=== PATIENT | male | born 1955 | race Caucasian/White ===

== ENCOUNTER 2024-12-05 15:41 | Emergency (ER) | payer MEDICARE, MEDICAID, SELFPAY ==
[2024-12-05 15:42] VITALS: BMI 26.6
[2024-12-05 15:51] VITALS: BP 164/101; BP 174/106; PULSE 77; RESP 20; TEMP 36.9; O2SAT 96
--- NOTE | 2024-12-05 16:12 | XR_ITS ---
Examination: CT abdomen and pelvis without contrast. Coronal 3-D reconstructions. Sagittal 2-D reconstructions. Date and time of exam:December 05, 2024 1614 hours INDICATIONS: Onset left-sided flank pain today CTDI: vol (mGy): 6.76 DLP: (mGycm): 381 Technique: Axial images of the abdomen have been obtained, 3 mm slice thickness Intravenous contrast material has not been administered. Low dose protocols were performed. One or more of the following dose reduction techniques were used; automated exposure control, adjustment of the mA and/or KV according to patient size, use of iterative reconstruction technique. Findings: Mild enlargement cardiac contour No focal liver or splenic lesions No gallstones No pancreatic or adrenal mass No renal or ureteral calculi, no hydronephrosis Aorta normal size No pericecal inflammatory change No bowel obstruction No diverticulitis Prostatomegaly transverse dimension 5.5 cm No bladder mass or bladder calculi Moderate osteopenia IMPRESSION: No renal or ureteral calculi, no hydronephrosis Moderate prostatomegaly No bladder mass or bladder calculi
--- NOTE | 2024-12-05 16:12 | PD.EDRME ---
Rapid Medical Screening Exam RME Arrival date/time: 12/05/24 15:41 69-year-old male presents emergency dept today complains of left-sided back and flank pain Chief Complaint: Abdominal Pain Vital signs: Vital Signs Temperature 98.4 F 12/05/24 15:51 Pulse Rate 77 12/05/24 15:51 Respiratory Rate 20 12/05/24 15:51 Blood Pressure 164/101 H 12/05/24 15:51 Pulse Oximetry (%) 96 12/05/24 15:51 Oxygen Delivery Method Room Air 12/05/24 15:51
[2024-12-05] MEDS: KETOROLAC INJ 30 MG/ML VIAL IM (16:32)
[2024-12-05 16:39] LABS: Basophils % (Auto) 0 % (0-2.5); Eosinophils # (Auto) 0.1 Thou/mm3 (0.0-0.5); Eosinophils % (Auto) 1 % (0-10); Hematocrit 42.9 % (41.0-53.0); Hemoglobin 14.8 g/dL (13.5-16.0); Immature Granulocytes % (Auto) 0 % (0-0); Immature Granulocytes Auto 0.03 Thou/mm3 (0.00-0.00); Lymphocytes # (Auto) 1.2 Thou/mm3 (1.0-4.8); Lymphocytes % (Auto) 15 % (10-50); Mean Corpuscular HGB Conc 34.5 g/dl (31.0-37.0); Mean Corpuscular Hemoglobin 28.5 pg (25.0-35.0); Mean Corpuscular Volume 83 fL (80-100); Monocytes # (Auto) 0.5 Thou/mm3 (0.0-0.8); Monocytes % (Auto) 7 % (0-12); Neutrophils # (Auto) 6.3 Thou/mm3 (1.8-7.7); Neutrophils % (Auto) 78 % (37-80); Nucleated Red Blood Cell % 0 /100 WBC (0); Platelet Count 166 Thou/mm3 (140-440); RDW Standard Deviation 39.9 fL (35.1-43.9); Red Blood Count 5.19 Miln/mm3 (4.50-5.90); White Blood Count 8.1 Thou/mm3 (3.8-10.6)
[2024-12-05 16:55] LABS: Alanine Aminotransferase 27 U/L (10-49); Albumin, Serum 4.5 gm/dL (3.4-4.8); Albumin/Globulin Ratio 1.8 (1.2-2.2); Alkaline Phosphatase 71 U/L (46-116); Anion Gap 8 (7-16); Aspartate Amino Transferase 28 U/L (0-34); BUN/Creatinine Ratio 17 Ratio (12-20); Bilirubin,Total 0.6 mg/dL (0.3-1.2); Blood Urea Nitrogen 17 mg/dL (9-23); Calcium 9.2 mg/dL (8.3-10.6); Calcium (Corrected) 9.2 mg/dL (8.5-10.1); Carbon Dioxide 25.9 mMol/L (20.0-31.0); Chloride 107 mMol/L (98-107); Globulin 2.5 gm/dL (2.3-3.5); Glucose 110 mg/dL (74-106); Lipase 41 U/L (12-53); Osmolality,Calculated 283 (275-295); Potassium 4.2 mMol/L (3.4-5.1); Sodium 141 mMol/L (136-145); eGFR > 60 See Note
[2024-12-05 16:56] LABS: Collection Type, Urine Clean Catch; Squamous Epithelial Cell,Urine 0 /hpf (0-5)
[2024-12-05 17:16] LABS: Bilirubin,Urine Negative (Negative); Blood,Urine Negative (Negative); Clarity,Urine Clear (Clear/Hazy); Color,Urine Lt-Yellow (Lt Yel-Yel); Culture Indicated,Urine Not Indicated; Glucose, Urine Negative (Negative); Ketones,Urine Negative (Negative); Leukocyte Esterase,Urine Negative (Negative); Nitrite,Urine Negative (Negative); PH,Urine 6.5 (5.0-7.0); Protein,Urine Trace (Neg - Trace); RBC,Urine 3 /hpf (0-3); Specific Gravity,Urine 1.023 (1.001-1.035); Urobilinogen,Urine Negative mg/dL (0.0-1.0); WBC,Urine 1 /hpf (0-5)
--- NOTE | 2024-12-05 20:34 | PD.EDABDPN ---
ED Abdominal Pain RME/HPI General Chief Complaint: Abdominal Pain Stated complaint: LEFT KIDNEY PAIN SINCE THIS AM WITH NAUSEA/VOMITIN Time seen by provider: 12/05/24 20:14 Arrival date/time: 12/05/24 15:41 69 year old male present to emergency room with c/o left flank pain this morning. LOCATION: flank SEVERITY: Symptoms are described as being severe with limitations on activities of daily living QUALITY: Symptoms are described as being cramping CONTEXT: The patient is unable to identify any inciting events. DURATION/TIMING: The symptoms started approximately one day ago and have been waxing/waning but always present without ever completely resolving. ASSOCIATED SYMPTOMS: nausea and vomiting MODIFYING FACTORS: The patient is unable to identify any alleviating or aggravating symptoms. PERTINENT ROS: no fevers, no anorexia, no nausea or vomiting, no diarrhea, no ripping or tearing sensations, no syncope or presyncopal symptoms, denies trauma, denies genital pain REVIEW OF SYSTEMS: See History of Present Illness - with the exception of those mentioned in the history of present illness, all other systems reviewed and reported as negative GENERAL: In general the patient is awake, interactive, in an emergency department gurney. HEAD/EYES/EARS/NOSE/THROAT: normo-cephalic, atraumatic, mucus membranes are moist, anicteric, palpebral conjunctiva is pink, trachea is midline. CARDIOVASCULAR: regular rate and regular rhythm, no murmurs, heart sounds are not distant, strong pulses in all four extremities that are equal and symmetric bilateral upper and lower extremities, normal capillary refill. CHEST/PULMONARY: normal chest rise and fall, good air movement, clear to auscultation bilaterally, normal inspiratory to expiratory ratios without evidence of respiratory distress. NECK: No midline/Paraspinal tenderness, no step off ROM/Strenght intact No Kernig and bruzinski sign. No trauma ABDOMEN: soft, not tender, no masses appreciated BACK: normal range of motion without pain. NEUROLOGICAL: cranio-facial features are symmetric, moves all four extremities equally without obvious limitations or weakness. EXTREMITY: no tenderness to palpation over the long bones or large joints of the bilateral upper and lower extremities, no joint swelling, no joint erythema, no signs of trauma, no unilateral leg swelling and no peripheral edema. SKIN: warm, dry, well-perfused, no jaundice, no rash, no telangiectasias or petechia. PSYCH: calm, cooperative, no evidence of psychosis or agitation RME / HPI RME / HPI narrative: 12/05/24 15:41 69-year-old male presents emergency dept today complains of left-sided back and flank pain Related Data Home Medications ?Medication ?Instructions ?Recorded ?Confirmed hydroxyzine HCl 25 mg tablet 25 mg PO DAILY 09/02/22 09/02/22 lisinopril 20 mg tablet 20 mg PO DAILY 09/02/22 09/02/22 metformin 500 mg tablet 500 mg PO BID 09/02/22 09/02/22 Allergies Allergy/AdvReac Type Severity Reaction Status Date / Time No Known Allergies Allergy Verified 12/05/24 15:44 Course Quality Measures none Orders Category Date Time Status CT abdomen pelvis wo con Stat Exams 12/05/24 16:12 Completed CBC Stat Lab 12/05/24 16:24 Completed Comprehensive Metabolic Panel Stat Lab 12/05/24 16:24 Completed Lipase Stat Lab 12/05/24 16:24 Completed UA, C/S IF [Urinalysis, C/S if Indicated] Stat Lab 12/05/24 16:45 Completed Ketorolac Inj [Toradol Inj] Med 12/05/24 16:12 Discontinued 30 mg IM X1 ONE Reevaluation(s) Reevaluation #1: pt report feeling better Vital Signs Vital signs: Vital Signs Temperature 98.4 F 12/05/24 15:51 Pulse Rate 77 12/05/24 15:51 Respiratory Rate 20 12/05/24 15:51 Blood Pressure 164/101 H 12/05/24 15:51 Pulse Oximetry (%) 96 12/05/24 15:51 Oxygen Delivery Method Room Air 12/05/24 15:51 Abdominal Pain MDM Patient data External records reviewed:: [facility] previous records Clinical information provided by:: patient Social determinants that could affect healthcare access:: none Patient has the following chronic illnesses:: HTN, DM How is presenting disease/condition affected by chronic disease/condition?: uneffected by Evaluation data The following diagnostics were reviewed and interpreted by me:: lab results and radiology exam(s) Lab and/or radiology exams considered but not ordered:: n/a Interpretation Summary: CT:?Mild enlargement cardiac contour No focal liver or splenic lesions No gallstones No pancreatic or adrenal mass No renal or ureteral calculi, no hydronephrosis Aorta normal size No pericecal inflammatory change No bowel obstruction No diverticulitis Prostatomegaly transverse dimension 5.5 cm No bladder mass or bladder calculi Moderate osteopenia IMPRESSION: No renal or ureteral calculi, no hydronephrosis Moderate prostatomegaly No bladder mass or bladder calculi cbc/cmp/urine no acute findings Medications / Prescriptions Medications or Prescriptions considered but not ordered:: n/a Medication administrations:: Medication Administration History Discontinued Medications Ketorolac Tromethamine (Ketorolac Inj 30 Mg/Ml Vial) 30 mg IM X1 ONE Stop: 12/05/24 16:13 Last Admin: 12/05/24 16:32 Dose: 30 mg Documented By: KF as stated above Consultations Consultation(s) initiated? (list below): No Diagnosis Differential diagnosis abdominal pain: abdominal pain, acute appendicitis, calculus of kidney, constipation, diverticulitis, gastroenteritis and small bowel obstruction Most likely diagnosis given after review of the tests above:: abd pain Admission Indicated Admission indicated?: not indicated Admission Request Was there a request for admission?: No Disposition Plan Disposition Plan: Discharge Discharge Attestation Discharge Attestation: The patient and all family members were given an opportunity to ask questions and understood the discharge instructions. Discharge instructions specifically effects, indications for sooner follow up or return to the emergency department, and the expected course of current diagnosis. Patient condition: Stable Discharge Plan Plan Patient Disposition: HOME (Self Care) Health Concerns: Follow with PMD as directed Take tylenol or motrin as need Return to ED if sx worsen Prescriptions/Referrals Prescriptions/Med Rec: No Action metformin 500 mg tablet 500 mg PO BID lisinopril 20 mg tablet 20 mg PO DAILY hydroxyzine HCl 25 mg tablet 25 mg PO DAILY Referrals: Ulises Beltran MD [Primary Care Provider] - In 1 week Problem List Clinical Impression: Abdominal pain Patient/Caregiver Discharge Instructions Education Materials: Abdominal Pain Print Language: Emirati Stand Alone Forms: [employer] Award Info., Patient Portal Info Letter
== END 2024-12-05 20:56 | disposition home or self-care (01) ==
PROVIDERS: Nurse Practitioner Primary Care; Emergency Provider Emergency Medicine; PCP Family Medicine
DX: R10.9 Unspecified abdominal pain (principal); N40.0 Benign prostatic hyperplasia without lower urinary tract symptoms
CPT/HCPCS: 36415; 74176; 80053; 81001; 83690; 85025; 96372; 99284; J1885

== ENCOUNTER 2024-12-06 10:12 | Emergency (ER) | payer MEDICARE, MEDICAID, SELFPAY ==
[2024-12-06 10:14] VITALS: BMI 26.6
[2024-12-06 10:55] VITALS: BP 167/96; PULSE 78; RESP 16; TEMP 36.9; O2SAT 99
--- NOTE | 2024-12-06 11:12 | PD.EDRME ---
Rapid Medical Screening Exam E Arrival date/time: 12/06/24 10:12 69-year-old male with a history of hypertension and type 2 diabetes presents to the emergency room with a chief complaint of left-sided flank pain that radiates down to his left groin. Patient was seen here for the same reason yesterday but states his pain has not gone away. I have greeted and performed a focused initial assessment of this patient. A comprehensive ED assessment and evaluation of the patient, analysis of all test results, and completion of the medical decision making process will be conducted by additional ED providers. Chief Complaint: Abdominal Pain Time Seen by Provider: 12/06/24 10:32 Vital signs: Vital Signs Temperature 98.5 F 12/06/24 10:55 Pulse Rate 78 12/06/24 10:55 Respiratory Rate 16 12/06/24 10:55 Blood Pressure 167/96 H 12/06/24 10:55 Pulse Oximetry (%) 99 12/06/24 10:55 Oxygen Delivery Method Room Air 12/06/24 10:55 Vital signs reviewed by provider: Yes
--- NOTE | 2024-12-06 11:14 | PD.EDADULT ---
ED General RME/HPI General Chief complaint: Abdominal Pain Stated complaint: L) KIDNEY PAIN RADIATING TO ABD Time Seen by Provider: 12/06/24 10:32 Arrival date/time: 12/06/24 10:12 RME / HPI RME / HPI narrative: 12/06/24 10:12 69-year-old male with a history of hypertension and type 2 diabetes presents to the emergency room with a chief complaint of left-sided flank pain that radiates down to his left groin. Patient was seen here for the same reason yesterday but states his pain has not gone away. I have greeted and performed a focused initial assessment of this patient. A comprehensive ED assessment and evaluation of the patient, analysis of all test results, and completion of the medical decision making process will be conducted by additional ED providers. DR. NOVAK MAIN ED EVALUATION 69 y/o male with H/o DM Type II and hypertension to ED c/o tense left-sided flank pain that radiates to the left upper quadrant of the abdomen x 2 days. 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 Pain is alleviated when walking and holding up his left leg, but worsens when face down or when sitting up. Patient also denies any fever, body aches, sore throat, dysuria, hematuria, or testicular pain. Related Data Home Medications ?Medication ?Instructions ?Recorded ?Confirmed hydroxyzine HCl 25 mg tablet 25 mg PO DAILY 09/02/22 09/02/22 lisinopril 20 mg tablet 20 mg PO DAILY 09/02/22 09/02/22 metformin 500 mg tablet 500 mg PO BID 09/02/22 09/02/22 Allergies Allergy/AdvReac Type Severity Reaction Status Date / Time No Known Allergies Allergy Verified 12/06/24 10:19 Review of Systems Review of Systems Systems Reviewed: All systems reviewed, normal except as documented Narrative Review of Systems: Constitutional: DENIES; Fevers Eyes: DENIES; Loss of vision Head/Ear/Nose: DENIES; Loss of hearing Throat: DENIES; Dysphagia, sore throat Cardiovascular: DENIES; Chest pain, dyspnea or syncope Respiratory: DENIES; Shortness of breath Gastrointestinal: DENIES; Rectal bleeding or melena. Genitourinary: DENIES; Dysuria (painful or difficult urination) Musculoskeletal: DENIES; Arthralgia (pain in a joint), myalgia, + left-sided flank pain Skin: DENIES; Rash Neurological: DENIES; Loss of function or movement Psychiatric: DENIES; recent major life stressor, emotional problem, illicit drug use or abuse Endocrinology: DENIES; Weight change Hematologic/Lymphatic: DENIES; Abnormal bruising Allergic/Immunologic: DENIES; Urticaria (hives)? Past Medical History Past Medical History CARDIAC: Positive Cardiac Disorders and Hypertension ENDOCRINE: Positive Endocrine Disorders OTHER HISTORY: Positive Cancer (LIP CA 10 YRS AGO) Family History FAMILY HISTORY: Positive Family Cancer (SISTER COLON CA) Social History SMOKING STATUS: Never smoker ED Exam Narrative Physical exam: I was asked to see this patient in the [facility] area due to persistent left-sided or left flank pain. Physical Exam: General: The vital signs were reviewed. Patient is a well-developed pleasant gentleman the patient is non-toxic, in no apparent distress and appears healthy with a patent airway, no respiratory distress and has no apparent circulatory problems. Head & Scalp: Normocephalic, atraumatic. Face: Appears normal and is without lesions, deformity. Ears: Left external pinna appears normal. Right external pinna appears normal. Eyes: The sclera is anicteric. No obvious photophobia. The Left and Right Orbit/Lid/Conjunctiva appears normal without swelling, discoloration or injection. Nose: The nose is without deformity, discharge or tenderness; Throat: Appears normal. The mucous membranes are pink and moist without exudates, redness or mass seen. The tongue appears normal. Neck: The neck is supple and no apparent mass or adenopathy. Chest: The chest wall is normal in size and symmetry and has no chest wall tenderness or crepitus. The patient displays normal ventilator effort without retractions, accessory muscle use and has adequate air movement bilaterally with no wheezes and no rales. Cardiovascular: Regular rate and rhythm; No murmurs, rubs, or gallops; Gastrointestinal: The abdomen appears normal. No obvious hernias or mass. The abdomen is soft and benign, non-distended, with no pain, no guarding and no rebound tenderness. Bowel sounds are present and normal sounding. No CVA tenderness. Genitourinary: Back/Spine: There is no evidence of any vesicular rash seen. Very tender over the left flank and specifically when you palpate the lowest rib on the left. Patient gets up and walks without any difficulty. Does not appear to have any muscular tenderness below the rib and there is no spinal tenderness. Extremities/Musculoskeletal/lymphatic: The bilateral upper and lower extremities are warm. There is no evidence of arterial insufficiency. There is no evidence of venous insufficiency/edema. The patient spontaneously moves bilateral upper and lower extremities with no pain and no limitation of movement. There is no apparent, injury or trauma. Skin: The skin is warm, dry and intact. No rashes. No petechia. No purpura. No abnormal bruising. The color is appropriate with no cyanosis. Mental status/Psychiatric: Mental status is appropriate for age. The patient has no apparent delusions, visual hallucinations, no apparent audible hallucinations. The patient has no apparent suicidal thoughts/ideation and no apparent homicidal thoughts/ideation. Neurological: The patient is awake, alert, interactive, cordial, cooperative and is oriented to name and situation. The patient follows commands and answers historical question with no impairment. There is no visual disturbance apparent. The pupils are equal and reactive bilaterally with normal eye movements and no diplopia The bilateral upper and lower extremities have normal strength, normal range of motion and normal functioning. The gait, station and balance appear to be baseline with no acute change Course Quality Measures none Orders Category Date Time Status Bedside COVID-19 Antigen Test NOW Care 12/06/24 11:23 Completed Bedside Influenza A&B Antigen Test NOW Care 12/06/24 11:[address] lumbar spine wo con Stat Exams 12/06/24 11:[address] thoracic spine wo con Stat Exams 12/06/24 11:24 Completed RSV [Respiratory Syncytial Virus Ag] Stat Lab 12/06/24 12:40 Completed HYDROcodone*/APAP 5/325 [Jerome 5/325] Med 12/06/24 12:05 Discontinued 1 tab PO X1 ONE Ibuprofen Tab [Motrin Tab] Med 12/06/24 12:05 Discontinued 400 mg PO X1 ONE Vital Signs Vital signs: Vital Signs Temperature 98.5 F 12/06/24 10:55 Pulse Rate 78 12/06/24 10:55 Respiratory Rate 16 12/06/24 10:55 Blood Pressure 167/96 H 12/06/24 10:55 Pulse Oximetry (%) 99 12/06/24 10:55 Oxygen Delivery Method Room Air 12/06/24 10:55 [facility] Patient data External records reviewed:: [facility] previous records (I reviewed most recent ED visit for abdominal pain on 12/05/2024.) Clinical information provided by:: patient Social determinants that could affect healthcare access:: none Patient has the following chronic illnesses:: Hypertension, Type II DM How is presenting disease/condition affected by chronic disease/condition?: exacerbated by Evaluation data The following diagnostics were reviewed and interpreted by me:: lab results and radiology exam(s) Lab and/or radiology exams considered but not ordered:: None Interpretation Summary: Patient: MALLORY MADDEN. Record#: [id number] Birthdate: 1955 Age/Sex: 69 / M Location: [facility] Attending Dr: Ordering Physician: Josr Novak MD Date of Service: 12/06/24 Procedure(s): CT thoracic spine wo con Accession Number(s): [id number] cc: Josr Novak MD; Gavin Worthington MD; NO PRIMARY/FAMILY,PHYSICIAN~ Examination: CT thoracic spine, without contrast. 2-D sagittal reconstructions. 2-D coronal reconstructions. 3-D reconstructions. Date and time of exam:December 06, 2024 1224 hours INDICATIONS: Upper back pain today radiating to the flank region CTDI: vol (mGy):22.2 DLP: (mGycm):834 Technique: Multiple 1.25 mm axial sections of the thoracic spine without intravenous contrast have been obtained. 2-D sagittal and coronal reconstructions have been obtained. 3-D reconstructions have been obtained. Low dose protocols were performed. One or more of the following dose reduction techniques were used; automated exposure control, adjustment of the mA and/or KV according to patient size, use of iterative reconstruction technique. Findings: Moderate osteopenia. Satisfactory alignment thoracic vertebral bodies. Mild diffuse thoracic disc narrowing. Thoracic pedicles laminated transverse and posterior spinous processes intact Soft tissue settings demonstrate no focal thoracic disc protrusion IMPRESSION: Mild diffuse thoracic degenerative disc disease No significant acquired spinal stenosis Dictated By: Gavin Worthington MD Signed By: <Electronically signed by Gavin Worthington MD in OV> 12/06/24 1337 Patient: MALLORY MADDEN Med. Record#: [id number] Birthdate: 1955 Age/Sex: 69 / M Location: [facility] Attending Dr: Ordering Physician: Josr Novak MD Date of Service: 12/06/24 Procedure(s): CT lumbar spine wo con Accession Number(s): [id number] cc: Josr Novak MD; Gavin Worthington MD; NO PRIMARY/FAMILY,PHYSICIAN~ Examination: CT lumbar spine, without contrast. 2-D sagittal reconstructions. 2-D coronal reconstructions. 3-D reconstructions. Date and time of exam:December 06, 2024 1224 hours INDICATIONS: Low back pain beginning today CTDI: vol (mGy):19.8 DLP: (mGycm):616 Technique: Multiple 1.25 mm axial sections of the lumbar spine without intravenous contrast have been obtained. 2-D sagittal and coronal reconstructions have been obtained. 3-D reconstructions have been obtained. Low dose protocols were performed. One or more of the following dose reduction techniques were used; automated exposure control, adjustment of the mA and/or KV according to patient size, use of iterative reconstruction technique. Findings: Adequate alignment lumbar vertebral bodies on the lateral view Mild to moderate lumbar disc narrowing L1-L2, L2-L3 No lumbar vertebral body compression fracture Lumbar pedicles, laminae, transverse and posterior spinous processes intact L5-S1 3 mm central lumbar disc bulge L4-L5 3 mm central lumbar disc bulges L3-L4 no disc protrusion L2-L3 no disc protrusion L1-L2 no disc protrusion IMPRESSION: No lumbar fracture L5-S1, L4-L5 3 mm central lumbar disc bulges Dictated By: Gavin Worthington MD Signed By: <Electronically signed by Gavin Worthington MD in OV> 12/06/24 1336 Medications Medications considered but not ordered:: None Medication administrations:: Medication Administration History Discontinued Medications Hydrocodone Bitart/Acetaminophen (Hydrocodone/Apap 5/325 Tablet) 1 tab PO X1 ONE Stop: 12/06/24 12:06 Last Admin: 12/06/24 12:23 Dose: 1 tab Documented By: DB Ibuprofen (Ibuprofen Tab 400 Mg Tablet) 400 mg PO X1 ONE Stop: 12/06/24 12:06 Last Admin: 12/06/24 12:23 Dose: 400 mg Documented By: DB See above if any. Consultations Consultation(s) initiated? (list below): No Diagnosis Differential Diagnosis ED Complaint MDM: Flank pain, musculoskeletal pain, kidney stone Most likely diagnosis given after review of the tests above:: Acute left flank pain Influenza A Admission Indicated Admission indicated?: not indicated Explain why admission is indicated or not indicated:: Does not meet admission criteria Admission Request Was there a request for admission?: No Disposition Plan Disposition Plan: Discharge Discharge Attestation Discharge Attestation: The patient and all family members were given an opportunity to ask questions and understood the discharge instructions. Discharge instructions specifically effects, indications for sooner follow up or return to the emergency department, and the expected course of current diagnosis. Patient condition: Stable Medical Decision Making MDM Narrative MDM Narrative: ICristina, am scribing for and in the presence of Dr. Josr Novak. I was asked by Desmond the nurse practitioner to come see this patient as he returns for reevaluation of his left flank pain. Yesterday had an extensive workup which reveals a CBC CHEM panels which were negative urine which was negative CT scan which was also negative no kidney stone was seen. Patient reports that his pain is still this there is unchanged from yesterday. Does not recall any injury or trauma. 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 Clinical exam he seems to have a palpable component to pain overlying the left lowest rib in the flank area. There is no rash to suggest shingles at this time. He appears to move okay but does have worsening pain when he does left lateral bending. Patient also has some pain in his left leg suggesting the possibility of possible radicular etiology. After reviewing the charts where he had labs and CT scan yesterday negative for kidney stone and labs are within normal limit , we decided to CT his thorax and lumbar area rule out any CT scans of the thorax came back negative CT scan of the lumbar spine was also negative set for some lower lumbar bulging disks which are not in the region of the patient's pain. Curiously enough influenza A came back positive. Patient is alert awake on reevaluation O2 sat is good. He was advised use Tylenol drink a lot of fluids and come back if getting worse. Curious thing about this patient he presents with more localized pain but then he is complaining about other parts of his body which is consistent with the flu and no obvious significant pathology was found to explain his left flank pain other than sometimes feels influenza do have back pain that is localized for unclear reasons. Differential Diagnosis Differential Diagnosis: Flank pain, musculoskeletal pain, kidney stone Lab Data Labs: Lab Results 12/06/24 Range/Units 12:40 RSV Rapid Negative (Negative) Discharge Plan Plan Patient Disposition: HOME (Self Care) Prescriptions/Referrals Prescriptions/Med Rec: No Action metformin 500 mg tablet 500 mg PO BID lisinopril 20 mg tablet 20 mg PO DAILY hydroxyzine HCl 25 mg tablet 25 mg PO DAILY Referrals: No Primary/Family,Physician [Primary Care Provider] - In 1 week Problem List Clinical Impression: Acute left flank pain, Influenza A Patient/Caregiver Discharge Instructions Education Materials: ED Influenza (Adult) Additional Instructions: It appears your flank pain and bodyaches are secondary to the influenza. CAT scans of your back were negative today. As discussed drink plenty fluids and you can take Tylenol or ibuprofen with some food to help with your aches and pains. Come back if getting short of breath or worse anyway. Print Language: Danish Stand Alone Forms: [facility] Award Info., Patient Portal Info Letter
--- NOTE | 2024-12-06 11:24 | XR_ITS ---
Examination: CT lumbar spine, without contrast. 2-D sagittal reconstructions. 2-D coronal reconstructions. 3-D reconstructions. Date and time of exam:December 06, 2024 1224 hours INDICATIONS: Low back pain beginning today CTDI: vol (mGy):19.8 DLP: (mGycm):616 Technique: Multiple 1.25 mm axial sections of the lumbar spine without intravenous contrast have been obtained. 2-D sagittal and coronal reconstructions have been obtained. 3-D reconstructions have been obtained. Low dose protocols were performed. One or more of the following dose reduction techniques were used; automated exposure control, adjustment of the mA and/or KV according to patient size, use of iterative reconstruction technique. Findings: Adequate alignment lumbar vertebral bodies on the lateral view Mild to moderate lumbar disc narrowing L1-L2, L2-L3 No lumbar vertebral body compression fracture Lumbar pedicles, laminae, transverse and posterior spinous processes intact L5-S1 3 mm central lumbar disc bulge L4-L5 3 mm central lumbar disc bulges L3-L4 no disc protrusion L2-L3 no disc protrusion L1-L2 no disc protrusion IMPRESSION: No lumbar fracture L5-S1, L4-L5 3 mm central lumbar disc bulges
--- NOTE | 2024-12-06 11:24 | XR_ITS ---
Examination: CT thoracic spine, without contrast. 2-D sagittal reconstructions. 2-D coronal reconstructions. 3-D reconstructions. Date and time of exam:December 06, 2024 1224 hours INDICATIONS: Upper back pain today radiating to the flank region CTDI: vol (mGy):22.2 DLP: (mGycm):834 Technique: Multiple 1.25 mm axial sections of the thoracic spine without intravenous contrast have been obtained. 2-D sagittal and coronal reconstructions have been obtained. 3-D reconstructions have been obtained. Low dose protocols were performed. One or more of the following dose reduction techniques were used; automated exposure control, adjustment of the mA and/or KV according to patient size, use of iterative reconstruction technique. Findings: Moderate osteopenia. Satisfactory alignment thoracic vertebral bodies. Mild diffuse thoracic disc narrowing. Thoracic pedicles laminated transverse and posterior spinous processes intact Soft tissue settings demonstrate no focal thoracic disc protrusion IMPRESSION: Mild diffuse thoracic degenerative disc disease No significant acquired spinal stenosis
--- NOTE | 2024-12-06 11:25 | PD.EDADULT ---
ED General RME/HPI General Chief complaint: Abdominal Pain Stated complaint: L) KIDNEY PAIN RADIATING TO ABD Time Seen by Provider: 12/06/24 10:32 Arrival date/time: 12/06/24 10:12 RME / HPI RME / HPI narrative: 12/06/24 10:12 69-year-old male with a history of hypertension and type 2 diabetes presents to the emergency room with a chief complaint of left-sided flank pain that radiates down to his left groin. Patient was seen here for the same reason yesterday but states his pain has not gone away. I have greeted and performed a focused initial assessment of this patient. A comprehensive ED assessment and evaluation of the patient, analysis of all test results, and completion of the medical decision making process will be conducted by additional ED providers. DR. RADER MAIN ED EVALUATION 69 y/o male with H/o DM Type II and hypertension to ED c/o tense left-sided flank pain that radiates to the left upper quadrant of the abdomen x 2 days. 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 Pain is alleviated when walking and holding up his left leg, but worsens when face down or when sitting up. Patient also denies any fever, body aches, sore throat, dysuria, hematuria, or testicular pain. Related Data Home Medications ?Medication ?Instructions ?Recorded ?Confirmed hydroxyzine HCl 25 mg tablet 25 mg PO DAILY 09/02/22 09/02/22 lisinopril 20 mg tablet 20 mg PO DAILY 09/02/22 09/02/22 metformin 500 mg tablet 500 mg PO BID 09/02/22 09/02/22 Allergies Allergy/AdvReac Type Severity Reaction Status Date / Time No Known Allergies Allergy Verified 12/06/24 10:19 Review of Systems Review of Systems Systems Reviewed: All systems reviewed, normal except as documented Narrative Review of Systems: Constitutional: DENIES; Fevers Eyes: DENIES; Loss of vision Head/Ear/Nose: DENIES; Loss of hearing Throat: DENIES; Dysphagia, sore throat Cardiovascular: DENIES; Chest pain, dyspnea or syncope Respiratory: DENIES; Shortness of breath Gastrointestinal: DENIES; Rectal bleeding or melena. Genitourinary: DENIES; Dysuria (painful or difficult urination), hematuria, testicular pain Musculoskeletal: DENIES; Arthralgia (pain in a joint), + left-sided flank pain, myalgia Skin: DENIES; Rash Neurological: DENIES; Loss of function or movement Psychiatric: DENIES; recent major life stressor, emotional problem, illicit drug use or abuse Endocrinology: DENIES; Weight change Hematologic/Lymphatic: DENIES; Abnormal bruising Allergic/Immunologic: DENIES; Urticaria (hives)? Past Medical History Past Medical History CARDIAC: Positive Cardiac Disorders and Hypertension ENDOCRINE: Positive Endocrine Disorders OTHER HISTORY: Positive Cancer (LIP CA 10 YRS AGO) Family History FAMILY HISTORY: Positive Family Cancer (SISTER COLON CA) Social History SMOKING STATUS: Former smoker Course Orders Category Date Time Status Bedside COVID-19 Antigen Test NOW Care 12/06/24 11:23 Active Bedside Influenza A&B Antigen Test NOW Care 12/06/24 11:[address] lumbar spine wo con Stat Exams 12/06/24 11:[address] thoracic spine wo con Stat Exams 12/06/24 11:24 Ordered RSV [Respiratory Syncytial Virus Ag] Stat Lab 12/06/24 11:23 Ordered Vital Signs Vital signs: Vital Signs Temperature 98.5 F 12/06/24 10:55 Pulse Rate 78 12/06/24 10:55 Respiratory Rate 16 12/06/24 10:55 Blood Pressure 167/96 H 12/06/24 10:55 Pulse Oximetry (%) 99 12/06/24 10:55 Oxygen Delivery Method Room Air 12/06/24 10:55 [facility] Patient data External records reviewed:: [facility] previous records (I reviewed most recent ED visit for abdominal pain on 12/05/2024.) Social determinants that could affect healthcare access:: none Patient has the following chronic illnesses:: DM Type II, Hypertension Evaluation data The following diagnostics were reviewed and interpreted by me:: lab results and radiology exam(s) Lab and/or radiology exams considered but not ordered:: None Medications Medications considered but not ordered:: None Medication administrations:: See above if any. Discharge Plan Prescriptions/Referrals Prescriptions/Med Rec: No Action metformin 500 mg tablet 500 mg PO BID lisinopril 20 mg tablet 20 mg PO DAILY hydroxyzine HCl 25 mg tablet 25 mg PO DAILY Referrals: No Primary/Family,Physician [Primary Care Provider] - In 1 week Patient/Caregiver Discharge Instructions Print Language: Estonian
--- NOTE | 2024-12-06 11:50 | PD.EDADULT ---
ED General RME/HPI General Chief complaint: Abdominal Pain Stated complaint: L) KIDNEY PAIN RADIATING TO ABD Time Seen by Provider: 12/06/24 10:32 Arrival date/time: 12/06/24 10:12 RME / HPI RME / HPI narrative: 12/06/24 10:12 69-year-old male with a history of hypertension and type 2 diabetes presents to the emergency room with a chief complaint of left-sided flank pain that radiates down to his left groin. Patient was seen here for the same reason yesterday but states his pain has not gone away. I have greeted and performed a focused initial assessment of this patient. A comprehensive ED assessment and evaluation of the patient, analysis of all test results, and completion of the medical decision making process will be conducted by additional ED providers. DR. RADER MAIN ED EVALUATION 69 y/o male with H/o DM Type II and hypertension to ED c/o tense left-sided flank pain that radiates to the left upper quadrant of the abdomen x 2 days. 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 Pain is alleviated when walking and holding up his left leg, but worsens when face down or when sitting up. Patient also denies any fever, body aches, sore throat, dysuria, hematuria, or testicular pain. Related Data Home Medications ?Medication ?Instructions ?Recorded ?Confirmed hydroxyzine HCl 25 mg tablet 25 mg PO DAILY 09/02/22 09/02/22 lisinopril 20 mg tablet 20 mg PO DAILY 09/02/22 09/02/22 metformin 500 mg tablet 500 mg PO BID 09/02/22 09/02/22 Allergies Allergy/AdvReac Type Severity Reaction Status Date / Time No Known Allergies Allergy Verified 12/06/24 10:19 Course Orders Category Date Time Status Bedside COVID-19 Antigen Test NOW Care 12/06/24 11:23 Active Bedside Influenza A&B Antigen Test NOW Care 12/06/24 11:[address] lumbar spine wo con Stat Exams 12/06/24 11:[address] thoracic spine wo con Stat Exams 12/06/24 11:24 Ordered RSV [Respiratory Syncytial Virus Ag] Stat Lab 12/06/24 11:23 Ordered Vital Signs Vital signs: Vital Signs Temperature 98.5 F 12/06/24 10:55 Pulse Rate 78 12/06/24 10:55 Respiratory Rate 16 12/06/24 10:55 Blood Pressure 167/96 H 12/06/24 10:55 Pulse Oximetry (%) 99 12/06/24 10:55 Oxygen Delivery Method Room Air 12/06/24 10:55 Discharge Plan Prescriptions/Referrals Prescriptions/Med Rec: No Action metformin 500 mg tablet 500 mg PO BID lisinopril 20 mg tablet 20 mg PO DAILY hydroxyzine HCl 25 mg tablet 25 mg PO DAILY Referrals: No Primary/Family,Physician [Primary Care Provider] - In 1 week Patient/Caregiver Discharge Instructions Print Language: Tunisian
[2024-12-06] MEDS: IBUPROFEN TAB 400 MG TABLET PO (12:23)
[2024-12-06] MEDS: HYDROcodone/APAP 5/325 TABLET 1 TAB PO (12:23)
[2024-12-06 12:40] VITALS: BP 156/81; PULSE 79; RESP 16; TEMP 36.6; O2SAT 99
[2024-12-06 13:56] LABS: Respiratory Syncytial Virus Ag Negative (Negative)
[2024-12-06 15:06] VITALS: BP 139/93; PULSE 88; RESP 16; TEMP 36.7; O2SAT 99
== END 2024-12-06 15:10 | disposition home or self-care (01) ==
PROVIDERS: Emergency Provider Emergency Medicine
DX: R10.12 Left upper quadrant pain (principal); J10.1 Influenza due to other identified influenza virus with other respiratory manifestations; I10 Essential (primary) hypertension; E11.9 Type 2 diabetes mellitus without complications; M54.9 Dorsalgia, unspecified
CPT/HCPCS: 72128; 72131; 87400; 87634; 87811; 99284; A9270

== ENCOUNTER 2025-05-02 15:30 | Outpatient (RCR) | payer MEDICARE, MEDICAID, SELFPAY ==
--- NOTE | 2025-04-12 15:30 | PTNOTE_ITS ---
PT OP Initial Eval Patient Information Outpatient Physical Therapy Treatment Date: 04/12/25 Visit Reasons: lumbar pain Medical Diagnosis: M51.372 Treatment Dx #1: Back Pain Treatment Dx #2: L/S Mobility Deficits Start of Care: 04/12/25 Date of Onset: 6 months ago Smoking Status Smoking Status: Never smoker Initial Assessment Subjective: Pt is a 69 y/o male reports of chronic back and leg pain (5/10) worsening in the past 6 months. Pt's most recent CT scan found L4-L5 and L5-S1 disc bulge at 3 mm. No MRI has been done thus far. Pt has limitation with sitting, standing, lifting, work duties, chores, walking, and performing recreational activities. Objective: L/S AROM: all motions are WFL with end range pain in all plane Hip PROM: all motions are WFL except IR Hip MMTs: grossly 3+/5 Special Test (+) ANGELICA's (+) pabon (+) Gavin Test Muscle Length: Hs tightness Assessment: Pt demonstrate back pain with mobility deficits leading to difficulty with ADLs. 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
--- NOTE | 2025-04-19 15:58 | PT.ODAYNRPT ---
PT Outpatient Daily Note OP Daily Note Outpatient Physical Therapy Treatment Date: 04/19/25 Visit Reasons: lumbar pain Subjective: Pt reports he can walk about more than 10 blocks but has pain with prolonged sitting. Objective: Please see flow sheet for ther ex list. Assessment: Pt instructed on repeated lumbar extension, able to perform with good technique post verbal cues and demonstrations. Plan: Continue with POC. Length of Time (minutes) of Treatment: 30 Minutes Procedure Charges Therapeutic Exercise 30 minutes: Yes
--- NOTE | 2025-04-21 16:05 | PT.ODAYNRPT ---
PT Outpatient Daily Note OP Daily Note Outpatient Physical Therapy Treatment Date: 04/21/25 Visit Reasons: lumbar pain Subjective: Pt reports compliance with HEP. Objective: Please see flow sheet for ther ex list. Assessment: Pt able to replicate repeated lumbar extension in prone indicating compliance with HEP. Plan: Continue with POC. Length of Time (minutes) of Treatment: 30 Minutes Procedure Charges Therapeutic Exercise 30 minutes: Yes
--- NOTE | 2025-04-28 16:16 | PT.ODAYNRPT ---
PT Outpatient Daily Note OP Daily Note Outpatient Physical Therapy Treatment Date: 04/28/25 Visit Reasons: lumbar pain Subjective: Pt reports decrease in back pain. Objective: Please see flow sheet for ther ex list. Assessment: Pt responding to repeated lumbar extension with decrease LBP. Plan: Continue with POC. 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 If greater than 11 percent modifier is required. Method II: Divide the total time of care provided to patient by 10 (round to the nearest whole number) and add 1 min. to set the minimum time requirement. If treatment total was 60 min., then 10% of 6 min PT CQ modifier applied: CQ Modifier applied Procedure Charges Therapeutic Exercise 30 minutes: Yes
--- NOTE | 2025-05-02 15:57 | PT.ODAYNRPT ---
PT Outpatient Daily Note OP Daily Note Outpatient Physical Therapy Treatment Date: 05/02/25 Visit Reasons: lumbar pain Subjective: Pt reports the side of his leg is hurting lately. 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 pt mentioned that since that event pt mentioned that he has been having pain, pt pointing and moving finger down ITB saying that is where pain is. Objective: Please see flow sheet for ther ex lsit. Assessment: Pt instructed on ITB stretch to accommodate reported location of pain. Pt did not tolerate stationary bicycle due to pain on lateral thigh, along ITB. Plan: Assess response to treatment. Length of Time (minutes) of Treatment: 30 Minutes Procedure Charges Therapeutic Exercise 30 minutes: Yes
== END 2025-05-07 23:59 | disposition home or self-care (01) ==
LOC: CPTX 15:30
DX: M51.372 Other intervertebral disc degeneration, lumbosacral region with discogenic back pain and lower extremity pain (principal)
CPT/HCPCS: 97110; 97162

== ENCOUNTER 2025-06-02 14:00 | Outpatient (RCR) | payer MEDICARE, MEDICAID, SELFPAY ==
--- NOTE | 2025-05-10 16:11 | PT.ODAYNRPT ---
PT Outpatient Daily Note OP Daily Note Outpatient Physical Therapy Treatment Date: 05/10/25 Visit Reasons: lumbar pain Subjective: Pt's back is better, however, still notice intermittent pain down the right side of the leg. Pt wants to continue physical therapy since it seems to help the back Objective: Please see flow chart for list of ther ex performed Assessment: instructed patient to nerve floss on the right LE at home as HEP to help alleviate right LE pain. Pt performed correctly and gave verbal consent. Plan: Continue with PT Length of Time (minutes) of Treatment: 30 Minutes Procedure Charges Therapeutic Exercise 30 minutes: Yes
--- NOTE | 2025-05-15 16:28 | PT.ODAYNRPT ---
PT Outpatient Daily Note OP Daily Note Outpatient Physical Therapy Treatment Date: 05/15/25 Visit Reasons: lumbar pain Subjective: Pt reports back is doing better and that knee pain he was reporting last PT session has resolved. Objective: Please see flow sheet for ther ex list. Assessment: Pt presents in clinic with decrease pain allowing for intervention progression in clinic. Plan: Continue with poC. Length of Time (minutes) of Treatment: 30 Minutes Procedure Charges Therapeutic Exercise 30 minutes: Yes
--- NOTE | 2025-05-17 16:12 | PT.ODAYNRPT ---
PT Outpatient Daily Note OP Daily Note Outpatient Physical Therapy Treatment Date: 05/17/25 Visit Reasons: lumbar pain Subjective: Pt's back feels so so. No new concerns to report. Objective: Please see flow chart for list of ther ex performed Assessment: frequent cues to correct HHR exercise in standing. Pt tolerate added core strengthening exercises today Plan: Continue with PT Length of Time (minutes) of Treatment: 30 Minutes Procedure Charges Therapeutic Exercise 30 minutes: Yes
--- NOTE | 2025-05-22 16:07 | PT.ODS1RPT ---
PT OP Progress/Discharge Note Date of Service: 05/22/25 Progress Note/DC Note Progress Note/Discharge Note: Progress Note Patient Information Visit Reasons: lumbar pain Medical Diagnosis: M51.372 Treatment Dx #1: Back Pain Treatment Dx #2: L/S Mobility Deficits Service Continue Service or Discharge: Continue Service Certification Date Certification Dates: 05/22/25 to 08/21/25 Status Subjective: Pt's back is feeling much better. Pt notice less lower extremity pain. Pt has been able to stand, walk, perform chores, and ADLs with less limitation. Objective: L/S AROM: all motions are WFL Hip PROM: all motions are WFL Hip MMTs: grossly 3+/5 Special Test (+) ANGELICA's (+) Gavin Assessment: Pt demonstrate improvement with L/S mobility and overall core strength allowing him to resume ADLs with less limitation. Pt is progressing towards physical therapy goals and will finish authorized sessions and be release home with HEP to continue as maintenance program; thank you for your referrals. Plan: Continue with PT/POC Procedure Charges Therapeutic Exercise 30 minutes: Yes
--- NOTE | 2025-05-24 15:48 | PT.ODAYNRPT ---
PT Outpatient Daily Note OP Daily Note Outpatient Physical Therapy Treatment Date: 05/24/25 Visit Reasons: lumbar pain Subjective: Pt's back feels better. Pt does not have any concerns. Objective: Please see flow chart for list of ther ex perfomed Assessment: tolerate exercises with minimal pain Plan: Continue with PT Length of Time (minutes) of Treatment: 30 Minutes Procedure Charges Therapeutic Exercise 30 minutes: Yes
--- NOTE | 2025-05-29 16:47 | PTNOTE_ITS ---
PT Outpatient Daily Note OP Daily Note Outpatient Physical Therapy Treatment Date: 05/29/25 Visit Reasons: lumbar pain Subjective: Pt reports back is doing ok, has good and bad days. Objective: Please see flow sheet for ther ex list. Assessment: Added isometric abdominals exercise, pt completed with good sitting posture no complaints. Plan: Continue with POC. 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 If greater than 11 percent modifier is required. Method II: Divide the total time of care provided to patient by 10 (round to the nearest whole number) and add 1 min. to set the minimum time requirement. If treatment total was 60 min., then 10% of 6 min PT CQ modifier applied: CQ Modifier applied Procedure Charges Therapeutic Exercise 30 minutes: Yes
--- NOTE | 2025-06-02 15:17 | PT.ODS1RPT ---
PT OP Progress/Discharge Note Date of Service: 06/02/25 Progress Note/DC Note Progress Note/Discharge Note: DC Note Patient Information Visit Reasons: lumbar pain Medical Diagnosis: M51.372 Treatment Dx #1: Back Pain Treatment Dx #2: Back Pain Service Discharge Date: 06/02/25 Status Subjective: Pt's back has been feeling better with physical therapy. Pt has been able to stand, sit, perform chores, and walk with less limitation. Pt has a follow up appt with provider next week. Objective: L/S AROM: all motions are WFL Hip PROM: all motions are WNL Hip MMTs: grossly 4-/5 Assessment: Pt demonstrate functional L/S mobility and core strength allowing him to resume ADLs with less limitation. Pt has met set goals in therapy and will no longer benefit from physical therapy. Pt was instructed on HEP last session and educated to continue exercises to maintain overall mobility. Pt performed all exercises safely, thank you for your referrals. Plan: D/C home with HEP and follow up with PCP Procedure Charges Therapeutic Exercise 30 minutes: Yes
== END 2025-06-06 23:59 | disposition home or self-care (01) ==
LOC: CPTX 14:00
DX: M51.372 Other intervertebral disc degeneration, lumbosacral region with discogenic back pain and lower extremity pain (principal)
CPT/HCPCS: 97110